=== PATIENT | male | born 1960 | race Caucasian/White ===

== ENCOUNTER 2023-06-13 14:29 | Emergency (ER) | payer BC | END 2023-06-13 15:26 | disposition home or self-care (01) | LOC: JP.ED 14:29 | DX: S61.244A Puncture wound with foreign body of right ring finger without damage to nail, initial encounter (principal); I48.91 Unspecified atrial fibrillation; E11.9 Type 2 diabetes mellitus without complications; Z79.01 Long term (current) use of anticoagulants; Z79.84 Long term (current) use of oral hypoglycemic drugs; W45.8XXA Other foreign body or object entering through skin, initial encounter | CPT/HCPCS: 99283 ==